=== PATIENT | male | born 1965 | race Caucasian/White ===

== ENCOUNTER 2016-08-25 18:17 | Inpatient (IN) | payer OTHER ==
[~2016-08-25] VITALS: Ht 188 cm; Wt 98.0 kg
[2016-08-25] MEDS ORDERED: FISH OIL PO (18:28)
[2016-08-25] MEDS ORDERED: METOCLOPRAMIDE HCL 10 MG/2 ML VIAL IV ONE (19:00)
[2016-08-25] MEDS ORDERED: KETOROLAC TROMETHAMINE 15 MG INJ IV ONE (19:00)
[2016-08-25 19:05] LABS: *BILIRUBIN,URIN NEGATIVE (NEGATIVE); *BLOOD, URINE Trace-intact (NEGATIVE); *CLARITY,URINE CLEAR (CLEAR); *COLOR,URINE YELLOW (YELLOW); *KETONES,URINE 2+ (NEGATIVE); *PROTEIN,URINE 2+ (NEGATIVE); LEUKOCYTE ESTERASE ,URINE NEGATIVE (NEGATIVE); NITRITE, URINE NEGATIVE (NEGATIVE); PH,URINE 8.5 (5.0-8.0); UGLUCOSE NEGATIVE (NEGATIVE)
[2016-08-25] MEDS ORDERED: METOCLOPRAMIDE HCL 10 MG/2 ML VIAL ONE (19:11)
[2016-08-25] MEDS ORDERED: KETOROLAC TROMETHAMINE 15 MG INJ ONE (19:11)
[2016-08-25 19:14] LABS: MUCUS,URINE FEW /LPF (0-FEW); WBC,URINE 0-3 /HPF (0-3)
[2016-08-25 19:16] LABS: BASOPHILS # (AUTO) 0.2 K/uL (0.0-8.0); BASOPHILS % (AUTO) 1.3 % (0.0-2.0); EOSINOPHILS % (AUTO) 0.1 % (0.0-7.0); HEMATOCRIT 52.8 % (40-50); HEMOGLOBIN 17.6 G/DL (14.0-18.0); LYMPHOCYTES # (AUTO) 1.4 K/UL (0.8-4.8); LYMPHOCYTES % (AUTO) 8.2 % (20.5-51.5); MEAN CORPUSCULAR HEMOGLOBIN 30.8 UUG (27.0-31.0); MEAN CORPUSCULAR HGB CONC 33 g/dL (32.0-37.0); MEAN CORPUSCULAR VOLUME 92.8 FL (82.0-92.0); MONOCYTES # (AUTO) 1.2 K/UL (0.1-1.30); MONOCYTES % (AUTO) 7.1 % (0.0-11.0); NEUTROPHILS # (AUTO) 14.3 K/UL (1.8-8.9); NEUTROPHILS % (AUTO) 83.3 % (38.5-71.5); PLATELET COUNT (AUTO) 148 K/UL (150-450); WHITE BLOOD COUNT (AUTO) 17.1 K/UL (4.0-11.2)
[2016-08-25 19:22] LABS: CREATININE 0.8 mg/dL (0.6-1.3); POTASSIUM 3.9 mmol/L (3.5-5.1)
[2016-08-25 19:29] LABS: BILIRUBIN,DIRECT 0.3 mg/dL (0.0-0.2); BILIRUBIN,TOTAL 2.8 mg/dL (0.2-1.0); TOTAL PROTEIN, SERUM 7.9 g/dL (6.4-8.2)
[2016-08-25] MEDS ORDERED: ONDANSETRON IV *ER 4 MG/2 ML VIAL IV ONE (19:30)
[2016-08-25] MEDS ORDERED: MORPHINE SULFATE 4 MG/1 ML DISP.SYRIN IV ONE (19:30)
--- NOTE | 2016-08-25 19:30 | NUR ---
Received report from ABDIRASHID Arevalo. Assumed care of pt at this time. Pt resting in position of comfort for self. Pt conts to c/o pain, requested pain medication. Fluid bolus infusing freely to gravity. Pt felt hot to touch, checked temp and pt afebrile at 98.8 MD notified of pts pain. Awaiting further orders.
[2016-08-25 19:37] LABS: BAND % (MANUAL) 9 % (0-10); LYMPHOCYTES % (MANUAL) 8 % (20-40); MONOCYTES % (MANUAL) 9 % (2-10); NEUTROPHILS % (MANUAL) 74 % (42-75)
[2016-08-25] MEDS ORDERED: IV NORMAL SALINE 1000 ML BAG IV ONE ×2 (19:45)
[2016-08-25] MEDS ORDERED: MORPHINE SULFATE 4 MG/1 ML DISP.SYRIN ONE (19:48)
[2016-08-25] MEDS ORDERED: ONDANSETRON 4 MG/2 ML VIAL ONE (19:48)
--- NOTE | 2016-08-25 19:50 | NUR ---
First fluid bolus completed. Second liter fluid bolus started, infusing freely to gravity. Pt medicated for pain, will monitor for effects of medication.
--- NOTE | 2016-08-25 19:55 | NUR ---
Pt to CT via abby
--- NOTE | 2016-08-25 20:30 | NUR ---
Pt returned from CT via gurney. Pt resting in position of comfort for self. Fluid bolus cont infusing freely to gravity. Pt sts pain improved from previous medication. No complaints at this time
--- NOTE | 2016-08-25 23:34 | NUR ---
Second page for epic instructional technologist. Awaiting return call
--- NOTE | 2016-08-26 00:04 | NUR ---
Dr. Giron speaking with Dr. Winn. Admission pending. Pt sts pain is increasing. MD notified, awaiting further orders.
[2016-08-26] MEDS ORDERED: MORPHINE SULFATE 4 MG/1 ML DISP.SYRIN IV ONE (00:15)
[2016-08-26] MEDS ORDERED: ONDANSETRON IV *ER 4 MG/2 ML VIAL IV ONE (00:15)
[2016-08-26] MEDS ORDERED: LEVOFLOXACIN 750 MG/D5W 150 ML PIGGYBACK IV ONE (00:30)
[2016-08-26] MEDS ORDERED: METRONIDAZOLE 500 MG/NS 100 ML PIGGYBACK IV ONE (00:30)
[2016-08-26] MEDS ORDERED: MORPHINE SULFATE 4 MG/1 ML DISP.SYRIN ONE (00:39)
[2016-08-26] MEDS ORDERED: ONDANSETRON 4 MG/2 ML VIAL ONE (00:39)
[2016-08-26] MEDS ORDERED: METRONIDAZOLE 500 MG/NS 100ML 100 ML IV ONE (00:39)
--- NOTE | 2016-08-26 00:40 | NUR ---
Pt medicated for pain, will monitor for effects of medication. ABT infusion started, will monitor for any adverse reactions. Pt resting in position of comfort for self
[2016-08-26] MEDS ORDERED: ACETAMINOPHEN 325 MG TABLET PO PRN (01:00)
[2016-08-26] MEDS ORDERED: LEVOFLOXACIN 500 MG/D5W 500 MG in PREMIXED 1 EACH IV SCH (01:00)
[2016-08-26] MEDS ORDERED: ONDANSETRON 4 MG/2 ML VIAL IV PRN (01:00)
[2016-08-26] MEDS ORDERED: HYDROCODONE/APAP 5-325MG TABLET PO PRN (01:00)
[2016-08-26] MEDS ORDERED: Z GUARD REMEDY PASTE 57 GM TUBE TOP PRN (01:00)
[2016-08-26] MEDS ORDERED: MAGNESIUM HYDROXIDE 30 ML LIQUID UDC PO PRN (01:00)
[2016-08-26 01:20] VITALS: BP 151/99
--- NOTE | 2016-08-26 01:25 | NUR ---
RECEIVED PATIENT FROM ER VIA GURNEY. PATIENT IS A/O X 4. DENIES PAIN UPON ARRIVAL. BP SLIGHTLY ELEVATED. ALL OTHER VSS. HEPLOCK INTACT AND PATENT, NOTED TO RIGHT FA #20 GAUGE. PATIENT PREVIOUSLY GIVEN LEVAQUIN IV IN ER PRIOR TO ADMISSION TO FLOOR. ORIENTED PATIENT TO ROOM AND CALL LIGHT. CALL LIGHT IN REACH. ALL NEEDS ATTENDED. WILL CONTINUE TO MONITOR.
[2016-08-26] MEDS: ZOLPIDEM 5 MG TABLET PO PRN ×2 (01:53→21:30)
[2016-08-26] MEDS ORDERED: ZOLPIDEM 5 MG TABLET ONE (01:53)
--- NOTE | 2016-08-26 01:55 | NUR ---
PATIENT REQUESTING SLEEPING PILL. PATIENT GIVEN AMBIEN 5MG PO PRN FOR SLEEP. ALL NEEDS ATTENDED.
[2016-08-26 04:52] VITALS: BP 138/91
--- NOTE | 2016-08-26 05:58 | NUR ---
PATIENT ASLEEP IN BED. EASILY AROUSABLE. VSS. NO C/O PAIN OR DISCOMFORT AT THIS TIME. NO RESP. DISTRESS NOTED. CALL LIGHT IN REACH. ALL NEEDS ATTENDED. WILL CONTINUE TO MONITOR.
--- NOTE | 2016-08-26 07:30 | NUR ---
RECEIVED REPORT FROM MATTRESS FINISHER NURSE, PATIENT IN BED, BED IN LOW POSITION, SIDE RAILS UP X2.
[2016-08-26] MEDS: PANTOPRAZOLE SODIUM 40 MG TABLET.DR PO SCH (08:40)
[2016-08-26] MEDS: MORPHINE SULFATE 2 MG/1 ML DISP.SYRIN IV PRN ×3 (08:41→20:08)
[2016-08-26] MEDS: METRONIDAZOLE 500 MG/NS 100ML 500 MG in PREMIXED 1 EACH IV SCH ×3 (08:51→23:51)
[2016-08-26 11:21] VITALS: BP 127/86
[2016-08-26 15:30] LABS: BASOPHILS % (AUTO) 0.3 % (0.0-2.0); EOSINOPHILS # (AUTO) 0.2 K/uL (0.0-0.7); EOSINOPHILS % (AUTO) 1.3 % (0.0-7.0); HEMATOCRIT 48.5 % (40-50); HEMOGLOBIN 15.8 G/DL (14.0-18.0); LYMPHOCYTES % (AUTO) 15.2 % (20.5-51.5); MEAN CORPUSCULAR HGB CONC 33 g/dL (32.0-37.0); MEAN CORPUSCULAR VOLUME 92.3 FL (82.0-92.0); MONOCYTES # (AUTO) 1.1 K/UL (0.1-1.30); NEUTROPHILS # (AUTO) 10.1 K/UL (1.8-8.9); NEUTROPHILS % (AUTO) 75.2 % (38.5-71.5); PLATELET COUNT (AUTO) 147 K/UL (150-450); RED BLOOD CELL COUNT(AUTO) 5.25 MIL/UL (4.7-6.1); WHITE BLOOD COUNT (AUTO) 13.4 K/UL (4.0-11.2)
[2016-08-26 15:32] LABS: CREATININE 0.9 mg/dL (0.6-1.3); POTASSIUM 4.2 mmol/L (3.5-5.1)
[2016-08-26 15:52] VITALS: BP 130/96
--- NOTE | 2016-08-26 18:09 | NUR ---
PATIENTS PAIN HAS BEEN CONTROLLED TODAY, COMFORT MEASURES TAKEN, AND PATIENT IS COOPERATIVE. VITALS WNL, LABS DRAWN AT 250PM
--- NOTE | 2016-08-26 19:20 | NUR ---
Bedside reporting with ABDIRASHID Alvarez
--- NOTE | 2016-08-26 19:30 | NUR ---
Awake, watching TV on initial rounds. Denies any pain/discomforts at this time. Safety measure and fall precaution maintained. Continue care as planned.
[2016-08-26 20:00] VITALS: BP 133/92
--- NOTE | 2016-08-26 20:08 | NUR ---
Medicated for lower abdominal pain in scale of 7/10 as ordered and needed. Will monitor. Jello and apple juice given per request.
--- NOTE | 2016-08-26 21:00 | NUR ---
Pain meds given effective.
[2016-08-27] MEDS: LEVOFLOXACIN 500 MG/D5W 500 MG in PREMIXED 1 EACH IV SCH (00:25)
[2016-08-27] MEDS: PANTOPRAZOLE SODIUM 40 MG TABLET.DR PO SCH (06:03)
--- NOTE | 2016-08-27 06:06 | NUR ---
Slept well. No further complaint of pain presented . All needs attended and met. No significant event reported all night. safety measures and fall precaution maintained. Continue care as planned.
[2016-08-27 06:40] VITALS: BP 125/86
[2016-08-27 07:22] LABS: CREATININE 0.8 mg/dL (0.6-1.3); MAGNESIUM 2.2 mg/dL (1.8-2.4); PHOSPHOROUS 2.8 mg/dL (2.5-4.9); POTASSIUM 4.1 mmol/L (3.5-5.1)
[2016-08-27] MEDS: MORPHINE SULFATE 2 MG/1 ML DISP.SYRIN IV PRN ×3 (07:31→19:28)
[2016-08-27] MEDS: METRONIDAZOLE 500 MG/NS 100ML 500 MG in PREMIXED 1 EACH IV SCH ×3 (07:32→23:27)
[2016-08-27 08:39] LABS: BASOPHILS % (AUTO) 0.2 % (0.0-2.0); EOSINOPHILS # (AUTO) 0.3 K/uL (0.0-0.7); EOSINOPHILS % (AUTO) 3.5 % (0.0-7.0); HEMATOCRIT 50.1 % (40-50); HEMOGLOBIN 16.4 G/DL (14.0-18.0); LYMPHOCYTES # (AUTO) 1.8 K/UL (0.8-4.8); LYMPHOCYTES % (AUTO) 19.2 % (20.5-51.5); MEAN CORPUSCULAR HEMOGLOBIN 30.6 UUG (27.0-31.0); MEAN CORPUSCULAR HGB CONC 33 g/dL (32.0-37.0); MEAN CORPUSCULAR VOLUME 93.5 FL (82.0-92.0); MONOCYTES # (AUTO) 0.8 K/UL (0.1-1.30); NEUTROPHILS # (AUTO) 6.5 K/UL (1.8-8.9); NEUTROPHILS % (AUTO) 68.1 % (38.5-71.5); PLATELET COUNT (AUTO) 140 K/UL (150-450); RED BLOOD CELL COUNT(AUTO) 5.36 MIL/UL (4.7-6.1)
[2016-08-27 08:41] LABS: WHITE BLOOD COUNT (AUTO) 9.4 K/UL (4.0-11.2)
[2016-08-27] MEDS ORDERED: LEVO500T2 PO (10:26)
[2016-08-27] MEDS ORDERED: METR500T PO (10:26)
[2016-08-27] MEDS ORDERED: BISACODYL 10 MG SUPP.RECT RC PRN (10:30)
[2016-08-27 12:10] VITALS: BP 150/92
[2016-08-27 12:13] VITALS: BP 97/69
[2016-08-27 16:21] VITALS: BP 145/90
[2016-08-27 16:24] VITALS: BP 145/90
[2016-08-27 20:00] VITALS: BP 121/78
--- NOTE | 2016-08-27 20:00 | NUR ---
RECEIVED PATIENT ASLEEP IN BED. EASILY AROUSABLE. DENIES PAIN. PATIENT WAS PREVIOUSLY MEDICATED PER RN DAYSHIFT NURSE. NO RESP. DISTRESS NOTED. VSS. CALL LIGHT IN REACH. ALL NEEDS ATTENDED. WILL CONTINUE TO MONITOR.
[2016-08-27] MEDS: ZOLPIDEM 5 MG TABLET PO PRN (22:19)
[2016-08-28] MEDS: LEVOFLOXACIN 500 MG/D5W 500 MG in PREMIXED 1 EACH IV SCH (00:11)
[2016-08-28] MEDS: PANTOPRAZOLE SODIUM 40 MG TABLET.DR PO SCH (06:13)
--- NOTE | 2016-08-28 06:31 | NUR ---
PATIENT ASLEEP IN BED. SLEPT WELL. CALL LIGHT IN REACH.
[2016-08-28 06:54] VITALS: BP 133/78
--- NOTE | 2016-08-28 07:25 | NUR ---
[facility] patient in bed, sleeping side rails up x2, bed in low position
[2016-08-28] MEDS: METRONIDAZOLE 500 MG/NS 100ML 500 MG in PREMIXED 1 EACH IV SCH (08:09)
[2016-08-28] MEDS: MORPHINE SULFATE 2 MG/1 ML DISP.SYRIN IV PRN (08:43)
[2016-08-28 11:17] LABS: BASOPHILS % (AUTO) 0.5 % (0.0-2.0); EOSINOPHILS # (AUTO) 0.2 K/uL (0.0-0.7); EOSINOPHILS % (AUTO) 2.6 % (0.0-7.0); HEMATOCRIT 52.2 % (40-50); HEMOGLOBIN 17.3 G/DL (14.0-18.0); LYMPHOCYTES # (AUTO) 1.6 K/UL (0.8-4.8); LYMPHOCYTES % (AUTO) 21.3 % (20.5-51.5); MEAN CORPUSCULAR HEMOGLOBIN 30.6 UUG (27.0-31.0); MEAN CORPUSCULAR HGB CONC 33 g/dL (32.0-37.0); MEAN CORPUSCULAR VOLUME 92.4 FL (82.0-92.0); MONOCYTES # (AUTO) 0.5 K/UL (0.1-1.30); MONOCYTES % (AUTO) 7.1 % (0.0-11.0); NEUTROPHILS # (AUTO) 5.1 K/UL (1.8-8.9); NEUTROPHILS % (AUTO) 68.5 % (38.5-71.5); PLATELET COUNT (AUTO) 193 K/UL (150-450); RED BLOOD CELL COUNT(AUTO) 5.65 MIL/UL (4.7-6.1); WHITE BLOOD COUNT (AUTO) 7.4 K/UL (4.0-11.2)
[2016-08-28 11:29] LABS: BILIRUBIN,TOTAL 0.9 mg/dL (0.2-1.0); PHOSPHOROUS 3.2 mg/dL (2.5-4.9); POTASSIUM 4.7 mmol/L (3.5-5.1); TOTAL PROTEIN, SERUM 8.1 g/dL (6.4-8.2)
--- NOTE | 2016-08-28 11:30 | NUR ---
DIET ADVANCED TO SEE IF PATIENT WILL TOLERATE REGULAR DIET.
[2016-08-28 11:36] LABS: THYROID STIMULATING HORMONE 2.618 mIU/mL (0.358-3.740)
[2016-08-28 12:04] VITALS: BP 140/99
[2016-08-28] MEDS ORDERED: HYDR-548 PO (13:53)
[2016-08-28] MEDS ORDERED: LEVO500T2 PO (13:53)
[2016-08-28] MEDS ORDERED: METR500T4 PO (13:53)
[2016-08-28] MEDS ORDERED: PANT40TA2 PO (13:53)
[2016-08-28] MEDS ORDERED: LACT1CAP57 PO (14:05)
[2016-08-28 15:19] VITALS: BP 142/96
--- NOTE | 2016-08-28 15:40 | NUR ---
PATIENT DISCHARGED AFTER CONSULT WITH PHARMACY FOR NEW MEDICATION, PRESCRIPTIONS GIVEN TO PATIENT. PATIENT IS STABLE, NO EVIDENCE OF SOB, PAIN OR DISTRESS NOTED.
== END 2016-08-28 17:20 | disposition home or self-care (01) | DRG 720 ==
LOC: ER 18:21 → MED 08-26 00:49
PROVIDERS: ADMIT Internal Medicine; ATTEND Nurse Practitioner Acute Care
DX: A41.9 Sepsis, unspecified organism (principal); D69.6 Thrombocytopenia, unspecified; K76.0 Fatty (change of) liver, not elsewhere classified; K57.32 Diverticulitis of large intestine without perforation or abscess without bleeding; K04.7 Periapical abscess without sinus; E78.5 Hyperlipidemia, unspecified; T40.605A Adverse effect of unspecified narcotics, initial encounter; Y92.009 Unspecified place in unspecified non-institutional (private) residence as the place of occurrence of the external cause; K59.03 Drug induced constipation; K57.30 Diverticulosis of large intestine without perforation or abscess without bleeding; D72.829 Elevated white blood cell count, unspecified; R14.0 Abdominal distension (gaseous); R73.9 Hyperglycemia, unspecified; K59.00 Constipation, unspecified; E80.6 Other disorders of bilirubin metabolism; R74.0 Nonspecific elevation of levels of transaminase and lactic acid dehydrogenase [LDH]
CPT/HCPCS: 36415; 70030-TC; 71010; 83690; 83735; 84100; 84443; 85025; 93005; A4663; J1885; J1956; J2270; J2405; J2765; J3490; J7030; J7040

== ENCOUNTER 2016-11-04 09:16 | Emergency (ER) | payer OTHER ==
[~2016-11-04] VITALS: Ht 188 cm; Wt 93.0 kg
[~2016-11-04 09:16] MED LIST: FISH OIL PO; HYDR-548 PO; LACT1CAP57 PO; LEVO500T2 PO; METR500T4 PO; PANT40TA2 PO
--- NOTE | 2016-11-04 09:27 | NUR ---
Dr López at the bedside for eval and exam.
--- NOTE | 2016-11-04 09:44 | NUR ---
Pt signed consent for IV contrast, placed in the chart.
[2016-11-04 09:51] LABS: BASOPHILS # (AUTO) 0.1 K/uL (0.0-8.0); BASOPHILS % (AUTO) 0.9 % (0.0-2.0); EOSINOPHILS # (AUTO) 0.2 K/uL (0.0-0.7); EOSINOPHILS % (AUTO) 2.2 % (0.0-7.0); HEMATOCRIT 53.7 % (40-50); HEMOGLOBIN 18.1 G/DL (14.0-18.0); LYMPHOCYTES # (AUTO) 2.5 K/UL (0.8-4.8); LYMPHOCYTES % (AUTO) 24.7 % (20.5-51.5); MEAN CORPUSCULAR HEMOGLOBIN 30.6 UUG (27.0-31.0); MEAN CORPUSCULAR HGB CONC 34 g/dL (32.0-37.0); MEAN CORPUSCULAR VOLUME 90.8 FL (82.0-92.0); MONOCYTES # (AUTO) 0.8 K/UL (0.1-1.30); MONOCYTES % (AUTO) 7.9 % (0.0-11.0); NEUTROPHILS # (AUTO) 6.5 K/UL (1.8-8.9); NEUTROPHILS % (AUTO) 64.3 % (38.5-71.5); PLATELET COUNT (AUTO) 159 K/UL (150-450); RED BLOOD CELL COUNT(AUTO) 5.92 MIL/UL (4.7-6.1); WHITE BLOOD COUNT (AUTO) 10.1 K/UL (4.0-11.2)
[2016-11-04 09:55] LABS: CREATININE 0.9 mg/dL (0.6-1.3); POTASSIUM 4.4 mmol/L (3.5-5.1)
[2016-11-04 10:00] LABS: BILIRUBIN,DIRECT 0.2 mg/dL (0.0-0.2); BILIRUBIN,TOTAL 1.3 mg/dL (0.2-1.0); TOTAL PROTEIN, SERUM 8.3 g/dL (6.4-8.2)
[2016-11-04] MEDS ORDERED: ACETAMINOPHEN ES 500 MG TABLET PO ONE (10:00)
[2016-11-04] MEDS ORDERED: ACETAMINOPHEN ES 500 MG TABLET ONE (10:04)
[2016-11-04 10:16] LABS: BAND % (MANUAL) 3 % (0-10); EOSINOPHILS % (MANUAL) 2 % (0-8); LYMPHOCYTES % (MANUAL) 21 % (20-40); MONOCYTES % (MANUAL) 9 % (2-10); NEUTROPHILS % (MANUAL) 65 % (42-75)
--- NOTE | 2016-11-04 10:31 | NUR ---
Pt out of ER for ct.
[2016-11-04 10:39] LABS: *BILIRUBIN,URIN NEGATIVE (NEGATIVE); *BLOOD, URINE NEGATIVE (NEGATIVE); *CLARITY,URINE CLEAR (CLEAR); *COLOR,URINE YELLOW (YELLOW); *KETONES,URINE NEGATIVE (NEGATIVE); *PROTEIN,URINE 2+ (NEGATIVE); LEUKOCYTE ESTERASE ,URINE NEGATIVE (NEGATIVE); NITRITE, URINE NEGATIVE (NEGATIVE); UGLUCOSE NEGATIVE (NEGATIVE)
[2016-11-04] MEDS ORDERED: IOHEXOL 300MG/ML 100 ML INFUS..BTL ONE (10:39)
[2016-11-04] MEDS ORDERED: NORMAL SALINE FLUSH 10 ML DISP.SYRIN ONE (10:39)
[2016-11-04] MEDS ORDERED: IV NORMAL SALINE 250 ML IV ONE (10:39)
[2016-11-04 10:55] LABS: MUCUS,URINE FEW /LPF (0-FEW); RBC,URINE 0-3 /HPF (0-3); WBC,URINE 0-3 /HPF (0-3)
[2016-11-04] MEDS ORDERED: KETOROLAC TROMETHAMINE 30 MG INJ IVP ONE (11:30)
[2016-11-04] MEDS ORDERED: KETOROLAC TROMETHAMINE 30 MG INJ ONE (11:48)
--- NOTE | 2016-11-04 11:50 | NUR ---
IV removed. Catheter intact and site benign. Pressure and 4x4 gauze applied to site. No bleeding noted.
[2016-11-04 11:51] VITALS: BP 117/88
--- NOTE | 2016-11-04 11:51 | NUR ---
Patient discharged to home in stable conditon. Written and verbal after care instructions given. Patient verbalizes understanding of instructions.
== END 2016-11-04 11:53 | disposition home or self-care (01) ==
LOC: ER 09:16
DX: K57.92 Diverticulitis of intestine, part unspecified, without perforation or abscess without bleeding (principal); H60.92 Unspecified otitis externa, left ear; E78.5 Hyperlipidemia, unspecified; E88.89 Other specified metabolic disorders
CPT/HCPCS: 36415; 74177; 80048; 80076; 81001; 85025; 96374; 99285; A4663; J1885; J3490; J7050; Q9967

== ENCOUNTER 2017-05-07 18:44 | Emergency (ER) | payer OTHER ==
[~2017-05-07] VITALS: Ht 185.4 cm; Wt 95.3 kg
[2017-05-07] MEDS ORDERED: HYDROMORPHONE 1 MG/1 ML DISP.SYRIN IV ONE (19:45)
[2017-05-07] MEDS ORDERED: ONDANSETRON 4 MG/2 ML VIAL IV ONE (19:45)
[2017-05-07] MEDS ORDERED: IV NORMAL SALINE 1000 ML BAG IV ONE (19:45)
--- NOTE | 2017-05-07 19:49 | NUR ---
Patient is currently in CT.
[2017-05-07] MEDS ORDERED: ONDANSETRON 4 MG/2 ML VIAL ONE (20:04)
[2017-05-07] MEDS ORDERED: HYDROMORPHONE 2 MG/1 ML DISP.SYRIN ONE (20:04)
[2017-05-07 20:22] LABS: BASOPHILS % (AUTO) 0.3 % (0.0-2.0); EOSINOPHILS # (AUTO) 0.1 K/uL (0.0-0.7); HEMATOCRIT 51.6 % (36.7-47.1); HEMOGLOBIN 17.2 g/dL (12.5-16.3); LYMPHOCYTES # (AUTO) 2.3 K/uL (20.0-40.0); LYMPHOCYTES % (AUTO) 18.1 % (20.5-51.5); MEAN CORPUSCULAR HEMOGLOBIN 30.8 uug (23.8-33.4); MEAN CORPUSCULAR HGB CONC 33 g/dL (32.5-36.3); MEAN CORPUSCULAR VOLUME 92.2 fL (73.0-96.2); MONOCYTES # (AUTO) 1.2 K/uL (2.0-10.0); NEUTROPHILS # (AUTO) 9.2 K/uL (1.8-8.9); NEUTROPHILS % (AUTO) 71.6 % (38.5-71.5); PLATELET COUNT (AUTO) 142 K/uL (152-348); WHITE BLOOD COUNT (AUTO) 12.8 K/uL (3.6-10.2)
--- NOTE | 2017-05-07 20:30 | NUR ---
DARIO MD at bedside for patient evaluation/update.
[2017-05-07 20:33] LABS: CREATININE 0.9 mg/dL (0.6-1.3); POTASSIUM 4.6 mmol/L (3.5-5.1)
[2017-05-07 20:41] LABS: BILIRUBIN,DIRECT 0.2 mg/dL (0.0-0.2); BILIRUBIN,TOTAL 1.3 mg/dL (0.2-1.0)
[2017-05-07 21:20] VITALS: BP 137/87
--- NOTE | 2017-05-07 21:21 | NUR ---
Patient discharged to home in stable conditon. Written and verbal after care instructions given. Patient verbalizes understanding of instructions. Ambulated from ER with stable gait. All belongings with patient. Peripheral IV removed prior to d/c. Patient driven home by .
== END 2017-05-07 21:21 | disposition home or self-care (01) ==
LOC: ER 18:50
DX: K57.92 Diverticulitis of intestine, part unspecified, without perforation or abscess without bleeding (principal); E78.00 Pure hypercholesterolemia, unspecified; Z79.2 Long term (current) use of antibiotics; Z79.899 Other long term (current) drug therapy
CPT/HCPCS: 36415; 70030-TC; 83690; 85025; 85730; 93005; A4663; J1170; J2405; J7030

== ENCOUNTER 2017-08-31 18:39 | Emergency (ER) | payer OTHER ==
[~2017-08-31] VITALS: Ht 188 cm; Wt 95.3 kg
--- NOTE | 2017-08-31 19:25 | NUR ---
Dr. Shukla at bedside for MSE.
[2017-08-31] MEDS ORDERED: HYDROMORPHONE 1 MG/1 ML DISP.SYRIN IV ONE ×2 (19:30→20:45)
[2017-08-31] MEDS ORDERED: IV NORMAL SALINE 1000 ML BAG IV ONE (19:30)
[2017-08-31] MEDS ORDERED: ONDANSETRON 4 MG/2 ML VIAL IV ONE (19:30)
--- NOTE | 2017-08-31 19:52 | NUR ---
Pt out of ER for CT.
[2017-08-31 19:53] LABS: *BILIRUBIN,URIN NEGATIVE (NEGATIVE); *BLOOD, URINE Trace-lysed (NEGATIVE); *CLARITY,URINE SLIGHTLY CLOUDY (CLEAR); *COLOR,URINE YELLOW (YELLOW); *KETONES,URINE NEGATIVE (NEGATIVE); *PROTEIN,URINE NEGATIVE (NEGATIVE); *UROBILINOGEN,URINE 0.2 E.U./dl (NORMAL); LEUKOCYTE ESTERASE ,URINE NEGATIVE (NEGATIVE); NITRITE, URINE NEGATIVE (NEGATIVE); PH,URINE 5.5 (5.0-8.0); UGLUCOSE NEGATIVE (NEGATIVE)
[2017-08-31] MEDS ORDERED: HYDROMORPHONE 2 MG/1 ML DISP.SYRIN ONE ×2 (19:53→20:50)
[2017-08-31] MEDS ORDERED: ONDANSETRON 4 MG/2 ML VIAL ONE ×3 (19:53→20:53)
[2017-08-31 19:59] LABS: BACTERIA,URINE NONE SEEN /HPF (NONE SEEN); RBC,URINE 0-3 /HPF (0-3); SQUAMOUS EPITHELIAL CELL,UR NONE SEEN /HPF (NONE SEEN); WBC,URINE 0-3 /HPF (0-3)
[2017-08-31 20:00] LABS: BASOPHILS % (AUTO) 0.5 % (0.0-2.0); EOSINOPHILS # (AUTO) 0.2 K/uL (0.0-0.7); EOSINOPHILS % (AUTO) 1.9 % (0.0-7.0); HEMATOCRIT 49.2 % (36.7-47.1); HEMOGLOBIN 16.9 g/dL (12.5-16.3); LYMPHOCYTES # (AUTO) 2.4 K/uL (20.0-40.0); LYMPHOCYTES % (AUTO) 23.2 % (20.5-51.5); MEAN CORPUSCULAR HEMOGLOBIN 31.6 uug (23.8-33.4); MEAN CORPUSCULAR HGB CONC 34 g/dL (32.5-36.3); MONOCYTES % (AUTO) 9.3 % (0.0-11.0); NEUTROPHILS # (AUTO) 6.8 K/uL (1.8-8.9); NEUTROPHILS % (AUTO) 65.1 % (38.5-71.5); PLATELET COUNT (AUTO) 131 K/uL (152-348); RED BLOOD CELL COUNT(AUTO) 5.34 MIL/uL (4.06-5.63); WHITE BLOOD COUNT (AUTO) 10.5 K/uL (3.6-10.2)
--- NOTE | 2017-08-31 20:01 | NUR ---
Patient back to ER from CT.
[2017-08-31 20:09] LABS: CREATININE 0.9 mg/dL (0.6-1.3); POTASSIUM 4.2 mmol/L (3.5-5.1)
[2017-08-31 20:16] LABS: BILIRUBIN,DIRECT 0.2 mg/dL (0.0-0.2); BILIRUBIN,TOTAL 1.2 mg/dL (0.2-1.0); TOTAL PROTEIN, SERUM 7.8 g/dL (6.4-8.2)
--- NOTE | 2017-08-31 20:26 | NUR ---
Pt states pain has decreased to 5/10, denies nausea.
[2017-08-31] MEDS ORDERED: ONDANSETRON IV *ER 4 MG/2 ML VIAL IV ONE (20:45)
--- NOTE | 2017-08-31 20:45 | NUR ---
Pt requesting more pain meds, notified.
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
--- NOTE | 2017-08-31 22:29 | NUR ---
Pt states he called his girlfriend to pick him up.
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
--- NOTE | 2017-08-31 22:46 | NUR ---
Patient discharged to home in stable conditon. Written and verbal after care instructions given. Patient verbalizes understanding of instructions. Patient ambulated out of ER with steady gait, no acute signs of distress, VSS, all belongings taken, IV site discontinued.
[2017-08-31 22:48] VITALS: BP 141/106
== END 2017-08-31 22:49 | disposition home or self-care (01) ==
LOC: ER 18:42
DX: K57.92 Diverticulitis of intestine, part unspecified, without perforation or abscess without bleeding (principal); E78.5 Hyperlipidemia, unspecified; Z79.2 Long term (current) use of antibiotics; Z79.891 Long term (current) use of opiate analgesic; Z79.899 Other long term (current) drug therapy
CPT/HCPCS: 36415; 71045; 74176; 80048; 80076; 81001; 83690; 84484; 85025; 85730; 93005; 96374; 96375; 96376; 99285; A4663; J1170 ×2; J2405 ×3; J7030; 70030-TC; 87086

== ENCOUNTER 2017-10-26 00:12 | Inpatient (IN) | payer OTHER ==
[~2017-10-26] VITALS: Ht 188 cm; Wt 98.6 kg
[2017-10-26] MEDS ORDERED: ONDANSETRON 4 MG/2 ML VIAL IV ONE (01:00)
[2017-10-26] MEDS ORDERED: IV NORMAL SALINE 1000 ML BAG IV ONE (01:00)
[2017-10-26] MEDS ORDERED: HYDROMORPHONE 1 MG/1 ML DISP.SYRIN IV ONE ×2 (01:00→03:30)
[2017-10-26] MEDS ORDERED: ONDANSETRON 4 MG/2 ML VIAL ONE (01:20)
[2017-10-26] MEDS ORDERED: HYDROMORPHONE 2 MG/1 ML DISP.SYRIN ONE ×2 (01:20→03:34)
[2017-10-26 01:29] LABS: BASOPHILS % (AUTO) 0.3 % (0.0-2.0); EOSINOPHILS # (AUTO) 0.1 K/uL (0.0-0.7); EOSINOPHILS % (AUTO) 1.1 % (0.0-7.0); HEMATOCRIT 48.8 % (36.7-47.1); HEMOGLOBIN 16.4 g/dL (12.5-16.3); LYMPHOCYTES # (AUTO) 1.8 K/uL (20.0-40.0); LYMPHOCYTES % (AUTO) 17.5 % (20.5-51.5); MEAN CORPUSCULAR HEMOGLOBIN 31.1 uug (23.8-33.4); MEAN CORPUSCULAR HGB CONC 34 g/dL (32.5-36.3); MEAN CORPUSCULAR VOLUME 92.3 fL (73.0-96.2); MONOCYTES # (AUTO) 1.2 K/uL (2.0-10.0); MONOCYTES % (AUTO) 11.5 % (0.0-11.0); NEUTROPHILS # (AUTO) 7.1 K/uL (1.8-8.9); NEUTROPHILS % (AUTO) 69.6 % (38.5-71.5); PLATELET COUNT (AUTO) 134 K/uL (152-348); RED BLOOD CELL COUNT(AUTO) 5.28 MIL/uL (4.06-5.63); WHITE BLOOD COUNT (AUTO) 10.2 K/uL (3.6-10.2)
[2017-10-26 01:30] LABS: *BILIRUBIN,URIN NEGATIVE (NEGATIVE); *BLOOD, URINE NEGATIVE (NEGATIVE); *CLARITY,URINE CLEAR (CLEAR); *KETONES,URINE NEGATIVE (NEGATIVE); *PROTEIN,URINE NEGATIVE (NEGATIVE); *UROBILINOGEN,URINE 0.2 E.U./dl (NORMAL); LEUKOCYTE ESTERASE ,URINE NEGATIVE (NEGATIVE); NITRITE, URINE NEGATIVE (NEGATIVE); UGLUCOSE NEGATIVE (NEGATIVE)
[2017-10-26 01:39] LABS: *COLOR,URINE STRAW (YELLOW); BACTERIA,URINE NONE SEEN /HPF (NONE SEEN); RBC,URINE NONE SEEN /HPF (0-3); SQUAMOUS EPITHELIAL CELL,UR NONE SEEN /HPF (NONE SEEN); WBC,URINE NONE SEEN /HPF (0-3)
[2017-10-26 01:40] LABS: CREATININE 0.9 mg/dL (0.6-1.3); POTASSIUM 3.8 mmol/L (3.5-5.1)
[2017-10-26 01:46] LABS: BILIRUBIN,DIRECT 0.3 mg/dL (0.0-0.2); BILIRUBIN,TOTAL 2.1 mg/dL (0.2-1.0); TOTAL PROTEIN, SERUM 7.4 g/dL (6.4-8.2)
[2017-10-26] MEDS ORDERED: ACETAMINOPHEN 325 MG TABLET PO PRN (05:30)
[2017-10-26] MEDS ORDERED: Z GUARD REMEDY PASTE 57 GM TUBE TOP PRN (05:30)
[2017-10-26] MEDS ORDERED: MAGNESIUM HYDROXIDE 30 ML LIQUID UDC PO PRN (05:30)
[2017-10-26] MEDS ORDERED: HYDROMORPHONE 1 MG/1 ML DISP.SYRIN IV PRN (05:30)
[2017-10-26] MEDS ORDERED: MORPHINE SULFATE 2 MG/1 ML DISP.SYRIN IV PRN (05:30)
[2017-10-26] MEDS ORDERED: PIPERACILLIN SODIUM/TAZOBACTAM 4.5 G in IV DEXTROSE 5% 50 ML IV ONE (06:00)
[2017-10-26 06:21] VITALS: BP 154/108
[2017-10-26] MEDS: IV NS 1000 ML 1,000 ML IV PRN ×2 (08:08→21:34)
[2017-10-26] MEDS: PANTOPRAZOLE SODIUM 40 MG VIAL IV SCH (08:08)
[2017-10-26] MEDS: PIPERACILLIN/TAZOBACTAM/D5W 3.375 G in PREMIXED 1 EACH IV SCH ×3 (08:21→21:30)
[2017-10-26 11:58] VITALS: BP 125/89
[2017-10-26 16:04] VITALS: BP 139/96
[2017-10-26 20:12] VITALS: BP 136/89
[2017-10-26] MEDS: HYDROMORPHONE 2 MG/1 ML DISP.SYRIN IV PRN (21:30)
[2017-10-27 04:46] VITALS: BP 133/80
[2017-10-27] MEDS: PIPERACILLIN/TAZOBACTAM/D5W 3.375 G in PREMIXED 1 EACH IV SCH ×3 (05:24→21:30)
[2017-10-27 06:17] LABS: BASOPHILS % (AUTO) 0.3 % (0.0-2.0); EOSINOPHILS # (AUTO) 0.1 K/uL (0.0-0.7); EOSINOPHILS % (AUTO) 1.7 % (0.0-7.0); HEMATOCRIT 47.1 % (36.7-47.1); LYMPHOCYTES # (AUTO) 1.8 K/uL (20.0-40.0); LYMPHOCYTES % (AUTO) 21.1 % (20.5-51.5); MEAN CORPUSCULAR HEMOGLOBIN 32.1 uug (23.8-33.4); MEAN CORPUSCULAR HGB CONC 34 g/dL (32.5-36.3); MEAN CORPUSCULAR VOLUME 94.5 fL (73.0-96.2); MONOCYTES # (AUTO) 0.9 K/uL (2.0-10.0); MONOCYTES % (AUTO) 10.2 % (0.0-11.0); NEUTROPHILS # (AUTO) 5.6 K/uL (1.8-8.9); NEUTROPHILS % (AUTO) 66.7 % (38.5-71.5); PLATELET COUNT (AUTO) 118 K/uL (152-348); RED BLOOD CELL COUNT(AUTO) 4.99 MIL/uL (4.06-5.63); WHITE BLOOD COUNT (AUTO) 8.4 K/uL (3.6-10.2)
[2017-10-27 06:23] LABS: CREATININE 0.8 mg/dL (0.6-1.3); MAGNESIUM 2.2 mg/dL (1.8-2.4); PHOSPHOROUS 3.1 mg/dL (2.5-4.9); POTASSIUM 3.9 mmol/L (3.5-5.1)
[2017-10-27] MEDS: PANTOPRAZOLE SODIUM 40 MG VIAL IV SCH (09:15)
[2017-10-27 14:54] LABS: BILIRUBIN,DIRECT 0.3 mg/dL (0.0-0.2); BILIRUBIN,TOTAL 2.2 mg/dL (0.2-1.0)
[2017-10-27 15:50] VITALS: BP 121/81
[2017-10-27] MEDS: MORPHINE SULFATE 4 MG/1 ML DISP.SYRIN IV PRN ×2 (16:15→21:32)
[2017-10-27] MEDS: IV NS 1000 ML 1,000 ML IV PRN (17:15)
[2017-10-27 21:23] VITALS: BP 130/91
[2017-10-28 04:15] VITALS: BP 127/85
[2017-10-28] MEDS: PIPERACILLIN/TAZOBACTAM/D5W 3.375 G in PREMIXED 1 EACH IV SCH ×2 (05:36→13:26)
[2017-10-28] MEDS: IV NS 1000 ML 1,000 ML IV PRN ×2 (06:42→17:50)
[2017-10-28] MEDS: MORPHINE SULFATE 4 MG/1 ML DISP.SYRIN IV PRN (06:45)
[2017-10-28] MEDS: PANTOPRAZOLE SODIUM 40 MG VIAL IV SCH (08:26)
[2017-10-28 11:34] VITALS: BP_SYST 145
[2017-10-28] MEDS: ONDANSETRON 4 MG/2 ML VIAL IV PRN (13:18)
[2017-10-28] MEDS: HYDROMORPHONE 2 MG/1 ML DISP.SYRIN IV PRN (13:25)
[2017-10-28 15:51] VITALS: BP 140/83
[2017-10-28 17:24] LABS: BASOPHILS % (AUTO) 0.5 % (0.0-2.0); EOSINOPHILS # (AUTO) 0.1 K/uL (0.0-0.7); HEMATOCRIT 49.4 % (36.7-47.1); HEMOGLOBIN 16.6 g/dL (12.5-16.3); LYMPHOCYTES # (AUTO) 1.1 K/uL (20.0-40.0); LYMPHOCYTES % (AUTO) 12.1 % (20.5-51.5); MEAN CORPUSCULAR HGB CONC 34 g/dL (32.5-36.3); MEAN CORPUSCULAR VOLUME 94.9 fL (73.0-96.2); MONOCYTES # (AUTO) 0.6 K/uL (2.0-10.0); MONOCYTES % (AUTO) 7.1 % (0.0-11.0); NEUTROPHILS % (AUTO) 79.3 % (38.5-71.5); PLATELET COUNT (AUTO) 131 K/uL (152-348); RED BLOOD CELL COUNT(AUTO) 5.21 MIL/uL (4.06-5.63); WHITE BLOOD COUNT (AUTO) 8.9 K/uL (3.6-10.2)
[2017-10-28 18:14] LABS: BILIRUBIN,DIRECT 0.2 mg/dL (0.0-0.2); BILIRUBIN,TOTAL 1.2 mg/dL (0.2-1.0); TOTAL PROTEIN, SERUM 7.7 g/dL (6.4-8.2)
[2017-10-28 19:56] VITALS: BP 148/91
[2017-10-28] MEDS: CIPROFLOXACIN IV 400 MG in PREMIXED 1 EACH IV SCH (20:24)
[2017-10-28] MEDS: METRONIDAZOLE 500 MG/NS 100ML 500 MG in PREMIXED 1 EACH IV SCH (21:34)
[2017-10-29 04:00] VITALS: BP 126/56
[2017-10-29] MEDS: METRONIDAZOLE 500 MG/NS 100ML 500 MG in PREMIXED 1 EACH IV SCH ×3 (05:12→21:49)
[2017-10-29 07:03] LABS: BILIRUBIN,TOTAL 1.5 mg/dL (0.2-1.0); CREATININE 0.8 mg/dL (0.6-1.3); PHOSPHOROUS 3.2 mg/dL (2.5-4.9); POTASSIUM 3.5 mmol/L (3.5-5.1); TOTAL PROTEIN, SERUM 7.1 g/dL (6.4-8.2)
[2017-10-29 07:06] LABS: BASOPHILS % (AUTO) 0.2 % (0.0-2.0); EOSINOPHILS # (AUTO) 0.2 K/uL (0.0-0.7); HEMATOCRIT 47.4 % (36.7-47.1); HEMOGLOBIN 15.8 g/dL (12.5-16.3); LYMPHOCYTES # (AUTO) 1.8 K/uL (20.0-40.0); LYMPHOCYTES % (AUTO) 22.8 % (20.5-51.5); MEAN CORPUSCULAR HEMOGLOBIN 31.8 uug (23.8-33.4); MEAN CORPUSCULAR HGB CONC 33 g/dL (32.5-36.3); MEAN CORPUSCULAR VOLUME 95.2 fL (73.0-96.2); MONOCYTES # (AUTO) 0.7 K/uL (2.0-10.0); MONOCYTES % (AUTO) 9.5 % (0.0-11.0); NEUTROPHILS # (AUTO) 5.1 K/uL (1.8-8.9); NEUTROPHILS % (AUTO) 65.5 % (38.5-71.5); PLATELET COUNT (AUTO) 148 K/uL (152-348); RED BLOOD CELL COUNT(AUTO) 4.98 MIL/uL (4.06-5.63); WHITE BLOOD COUNT (AUTO) 7.8 K/uL (3.6-10.2)
[2017-10-29] MEDS: PANTOPRAZOLE SODIUM 40 MG VIAL IV SCH (08:34)
[2017-10-29] MEDS: CIPROFLOXACIN IV 400 MG in PREMIXED 1 EACH IV SCH ×2 (09:11→21:49)
[2017-10-29] MEDS: IV NS 1000 ML 1,000 ML IV PRN (09:35)
[2017-10-29] MEDS: POTASSIUM CHLORIDE 20 MEQ in IV D5/ 0.9% NACL 1,000 ML IV PRN (11:18)
[2017-10-29] MEDS: MORPHINE SULFATE 4 MG/1 ML DISP.SYRIN IV PRN (11:23)
[2017-10-29 11:49] VITALS: BP 153/89
[2017-10-29] MEDS ORDERED: MAGNESIUM CITRATE 296 ML BOTTLE PO ONE (12:15)
[2017-10-29] MEDS ORDERED: ERYTHROMYCIN BASE 250 MG TABLET.DR PO SCH (12:15)
[2017-10-29] MEDS ORDERED: NEOMYCIN SULFATE 500 MG TABLET PO SCH ×3 (13:00→22:00)
[2017-10-29] MEDS: ONDANSETRON 4 MG/2 ML VIAL IV PRN (15:25)
[2017-10-29 15:58] VITALS: BP 137/90
[2017-10-29] MEDS ORDERED: NORMAL SALINE FLUSH 10 ML DISP.SYRIN ONE (18:29)
[2017-10-29] MEDS ORDERED: SWABABLE VALVE TRANSFER SET EA MC ONE (18:29)
[2017-10-29] MEDS ORDERED: IOHEXOL 300MG/ML 100 ML INFUS..BTL ONE (18:29)
[2017-10-29] MEDS ORDERED: IV NORMAL SALINE 250 ML IV ONE (18:29)
[2017-10-29 20:58] VITALS: BP 140/97
[2017-10-30] MEDS: POTASSIUM CHLORIDE 20 MEQ in IV D5/ 0.9% NACL 1,000 ML IV PRN (03:22)
[2017-10-30 04:00] VITALS: BP 141/90
[2017-10-30] MEDS: METRONIDAZOLE 500 MG/NS 100ML 500 MG in PREMIXED 1 EACH IV SCH (05:19)
[2017-10-30 06:23] LABS: BASOPHILS % (AUTO) 0.5 % (0.0-2.0); EOSINOPHILS # (AUTO) 0.1 K/uL (0.0-0.7); EOSINOPHILS % (AUTO) 2.3 % (0.0-7.0); HEMATOCRIT 47.9 % (36.7-47.1); HEMOGLOBIN 16.4 g/dL (12.5-16.3); LYMPHOCYTES # (AUTO) 1.8 K/uL (20.0-40.0); LYMPHOCYTES % (AUTO) 28.5 % (20.5-51.5); MEAN CORPUSCULAR HEMOGLOBIN 32.1 uug (23.8-33.4); MEAN CORPUSCULAR HGB CONC 34 g/dL (32.5-36.3); MEAN CORPUSCULAR VOLUME 93.7 fL (73.0-96.2); MONOCYTES # (AUTO) 0.6 K/uL (2.0-10.0); MONOCYTES % (AUTO) 10.2 % (0.0-11.0); NEUTROPHILS # (AUTO) 3.7 K/uL (1.8-8.9); NEUTROPHILS % (AUTO) 58.5 % (38.5-71.5); PLATELET COUNT (AUTO) 155 K/uL (152-348); RED BLOOD CELL COUNT(AUTO) 5.11 MIL/uL (4.06-5.63); WHITE BLOOD COUNT (AUTO) 6.3 K/uL (3.6-10.2)
[2017-10-30 06:31] LABS: BILIRUBIN,TOTAL 1.6 mg/dL (0.2-1.0); CREATININE 0.8 mg/dL (0.6-1.3); PHOSPHOROUS 3.7 mg/dL (2.5-4.9); POTASSIUM 4.1 mmol/L (3.5-5.1); TOTAL PROTEIN, SERUM 7.4 g/dL (6.4-8.2)
[2017-10-30] MEDS: CIPROFLOXACIN IV 400 MG in PREMIXED 1 EACH IV SCH (08:17)
[2017-10-30] MEDS: PANTOPRAZOLE SODIUM 40 MG VIAL IV SCH (08:17)
[2017-10-30 11:07] VITALS: BP 150/96
[2017-10-30] MEDS ORDERED: HYDROCODONE/APAP 5-325MG TABLET PO PRN (14:30)
[2017-10-30] MEDS ORDERED: MAG HYDROX/AL HYDROX/SIMETH 30 ML LIQUID UDC PO PRN (14:30)
[2017-10-30] MEDS ORDERED: HYDR-3326 PO (14:36)
[2017-10-30] MEDS ORDERED: LACT1CAP59 PO (14:36)
[2017-10-30] MEDS ORDERED: METR500T4 PO (14:36)
[2017-10-30] MEDS ORDERED: CIPR250T4 PO (14:36)
[2017-10-30] MEDS ORDERED: MAG30ORA PO (14:36)
[2017-10-30 15:33] VITALS: BP 145/100
[2017-10-30] MEDS ORDERED: CIPROFLOXACIN HCL 250 MG TABLET PO SCH (21:00)
[2017-10-30] MEDS ORDERED: METRONIDAZOLE 500 MG TABLET PO SCH (22:00)
== END 2017-10-30 15:30 | disposition home or self-care (01) | DRG 244 ==
LOC: ER 00:16 → MED 05:20
PROVIDERS: ADMIT Hospitalist
DX: K57.32 Diverticulitis of large intestine without perforation or abscess without bleeding (principal); D69.6 Thrombocytopenia, unspecified; K76.0 Fatty (change of) liver, not elsewhere classified; E78.5 Hyperlipidemia, unspecified; E83.51 Hypocalcemia; R73.9 Hyperglycemia, unspecified; Z82.3 Family history of stroke; M47.898 Other spondylosis, sacral and sacrococcygeal region
CPT/HCPCS: 36415; 70030-TC; 71045; 76700; 83550; 83605; 83690; 83735; 84100; 85025; 85730; 86850; 86900; 86901; 87040; 93005; A4663; C9113; J0744; J1170; J2270; J2405; J2543; J3480; J3490; J7030; J7042; J7050; J7060; J8499; Q9967

== ENCOUNTER 2018-06-23 10:55 | Emergency (ER) | payer OTHER ==
[~2018-06-23] VITALS: Ht 188 cm; Wt 99.8 kg
[~2018-06-23 10:55] MED LIST changes: +CIPR250T4 PO; -FISH OIL PO; +HYDR-3326 PO; -HYDR-548 PO; -LACT1CAP57 PO; +LACT1CAP59 PO; -LEVO500T2 PO; +MAG30ORA PO; +METR-147 PO; -METR500T4 PO; -PANT40TA2 PO
[2018-06-23 12:01] LABS: BASOPHILS % (AUTO) 0.5 % (0.0-2.0); EOSINOPHILS # (AUTO) 0.1 K/uL (0.0-0.7); EOSINOPHILS % (AUTO) 2.5 % (0.0-7.0); HEMATOCRIT 47.4 % (36.7-47.1); LYMPHOCYTES # (AUTO) 2.1 K/uL (20.0-40.0); MEAN CORPUSCULAR HEMOGLOBIN 30.7 uug (23.8-33.4); MEAN CORPUSCULAR HGB CONC 34 g/dL (32.5-36.3); MEAN CORPUSCULAR VOLUME 90.8 fL (73.0-96.2); MONOCYTES # (AUTO) 0.5 K/uL (2.0-10.0); MONOCYTES % (AUTO) 8.6 % (0.0-11.0); NEUTROPHILS # (AUTO) 2.9 K/uL (1.8-8.9); NEUTROPHILS % (AUTO) 51.4 % (38.5-71.5); PLATELET COUNT (AUTO) 138 K/uL (152-348); RED BLOOD CELL COUNT(AUTO) 5.22 MIL/uL (4.06-5.63); WHITE BLOOD COUNT (AUTO) 5.6 K/uL (3.6-10.2)
[2018-06-23] MEDS ORDERED: ACETAMINOPHEN ES 500 MG TABLET ONE (12:05)
[2018-06-23 12:08] LABS: CREATININE 0.8 mg/dL (0.6-1.3); POTASSIUM 4.2 mmol/L (3.5-5.1)
[2018-06-23 12:14] LABS: BILIRUBIN,DIRECT 0.2 mg/dL (0.0-0.2); BILIRUBIN,TOTAL 0.9 mg/dL (0.2-1.0); TOTAL PROTEIN, SERUM 7.8 g/dL (6.4-8.2)
[2018-06-23] MEDS ORDERED: ACETAMINOPHEN ES 500 MG TABLET PO ONE (12:15)
[2018-06-23] MEDS ORDERED: ACETAMINOPHEN 325 MG TABLET PO ONE (12:15)
[2018-06-23] MEDS ORDERED: METOCLOPRAMIDE HCL 10 MG/2 ML VIAL IV ONE (12:15)
--- NOTE | 2018-06-23 12:35 | NUR ---
Patient is resting comfortably in bed watching TV. Pt signed consent for IV contrasted CT.
[2018-06-23] MEDS ORDERED: SWABABLE VALVE TRANSFER SET EA MC ONE (12:38)
[2018-06-23] MEDS ORDERED: IOHEXOL 350 100 ML INFUS..BTL ONE (12:38)
[2018-06-23] MEDS ORDERED: IV NORMAL SALINE 250 ML IV ONE (12:38)
--- NOTE | 2018-06-23 14:37 | NUR ---
IV removed. Catheter intact and site benign. Pressure and 4x4 gauze applied to site. No bleeding noted.
[2018-06-23 14:39] LABS: *RHEUMATOID FACTOR SCREEN NEGATIVE (NEGATIVE)
--- NOTE | 2018-06-23 14:39 | NUR ---
Patient discharged to home in stable conditon. Written and verbal after care instructions given. Patient verbalizes understanding of instructions. Pt walked out of ER w/ steady gait.
[2018-06-23 14:40] VITALS: BP 114/70
[2018-06-24 22:09] LABS: *ANTI-SCLERODERMA-70 AB <0.2 AI (0.0-0.9); *SJOGREN'S ANTI-SS-A <0.2 AI (0.0-0.9); *SJOGREN'S ANTI-SS-B <0.2 AI (0.0-0.9); *SMITH ANTIBODIES <0.2 AI (0.0-0.9); ANTI-DNA(DS) AB, QN 2 IU/mL (0-9)
== END 2018-06-23 14:41 | disposition home or self-care (01) ==
LOC: ER 10:55
DX: G43.909 Migraine, unspecified, not intractable, without status migrainosus (principal); R42 Dizziness and giddiness; E78.5 Hyperlipidemia, unspecified; Z79.4 Long term (current) use of insulin; Z79.899 Other long term (current) drug therapy
CPT/HCPCS: 36415; 70496; 70498; 80048; 80076; 84484; 85025; 85651; 85730; 86038; 86430; 93005; 99284; Q9967; 70030-TC; A4663; A9150; J7050

== ENCOUNTER 2019-11-02 15:15 | Emergency (ER) | payer OTHER ==
[~2019-11-02] VITALS: Ht 188 cm; Wt 99.8 kg
--- NOTE | 2019-11-02 15:27 | NUR ---
DR Roque at the bedside for MSE.
[2019-11-02 15:34] VITALS: BP 146/79
--- NOTE | 2019-11-02 15:42 | NUR ---
Patient discharged to home in stable condition. Written and verbal after care instructions given. Patient verbalizes understanding of instructions. Stressed follow up or return to ER for worsening s/s.
== END 2019-11-02 15:43 | disposition home or self-care (01) ==
LOC: ER 15:15
DX: H66.92 Otitis media, unspecified, left ear (principal); Z82.3 Family history of stroke; E78.5 Hyperlipidemia, unspecified; Z87.19 Personal history of other diseases of the digestive system; R03.0 Elevated blood-pressure reading, without diagnosis of hypertension
CPT/HCPCS: A4663

== ENCOUNTER 2020-06-15 22:07 | Emergency (ER) | payer OTHER ==
[~2020-06-15] VITALS: Ht 185.4 cm; Wt 102.1 kg
[2020-06-15] MEDS ORDERED: DIPHENOXYLATE HCL/ATROP SULF TABLET PO ONE (22:30)
[2020-06-15] MEDS ORDERED: IV LACTATED RINGERS SOLUTION 1,000 ML IV ONE (22:30)
[2020-06-15] MEDS ORDERED: ONDANSETRON 4 MG/2 ML VIAL IV ONE (22:30)
[2020-06-15] MEDS ORDERED: DIPHENOXYLATE HCL/ATROP SULF TABLET ONE (22:40)
[2020-06-15] MEDS ORDERED: ONDANSETRON 4 MG/2 ML VIAL ONE (22:40)
[2020-06-15] MEDS ORDERED: CYCLOBENZAPRINE HCL 10 MG TABLET PO ONE (22:45)
[2020-06-15] MEDS ORDERED: CYCLOBENZAPRINE HCL 10 MG TABLET ONE (22:47)
[2020-06-15 22:48] LABS: BASOPHILS % (AUTO) 0.3 % (0.0-2.0); EOSINOPHILS # (AUTO) 0.1 K/uL (0.0-0.7); EOSINOPHILS % (AUTO) 1.1 % (0.0-7.0); HEMATOCRIT 47.4 % (36.7-47.1); HEMOGLOBIN 15.8 g/dL (12.5-16.3); LYMPHOCYTES # (AUTO) 1.3 K/uL (20.0-40.0); LYMPHOCYTES % (AUTO) 13.7 % (20.5-51.5); MEAN CORPUSCULAR HEMOGLOBIN 30.9 uug (23.8-33.4); MEAN CORPUSCULAR HGB CONC 33 g/dL (32.5-36.3); MEAN CORPUSCULAR VOLUME 92.5 fL (73.0-96.2); MONOCYTES # (AUTO) 0.9 K/uL (2.0-10.0); MONOCYTES % (AUTO) 9.5 % (0.0-11.0); NEUTROPHILS # (AUTO) 7.4 K/uL (1.8-8.9); NEUTROPHILS % (AUTO) 75.4 % (38.5-71.5); PLATELET COUNT (AUTO) 125 K/uL (152-348); RED BLOOD CELL COUNT(AUTO) 5.12 MIL/uL (4.06-5.63); WHITE BLOOD COUNT (AUTO) 9.8 K/uL (3.6-10.2)
[2020-06-15 22:50] LABS: CREATININE 1.1 mg/dL (0.6-1.3); POTASSIUM 3.7 mmol/L (3.5-5.1)
[2020-06-15 22:56] LABS: BILIRUBIN,DIRECT 0.2 mg/dL (0.0-0.2); BILIRUBIN,TOTAL 1.2 mg/dL (0.2-1.0); TOTAL PROTEIN, SERUM 8.1 g/dL (6.4-8.2)
[2020-06-15] MEDS ORDERED: ONDA4TAB5 PO (23:14)
[2020-06-15] MEDS ORDERED: ONDANSETRON ODT 4 MG TAB.RAPDIS SL ONE (23:15)
--- NOTE | 2020-06-15 23:16 | NUR ---
IV removed. Catheter intact and site benign. Pressure and 4x4 gauze applied to site. No bleeding noted.
[2020-06-15] MEDS ORDERED: CYCL10TA9 PO (23:19)
[2020-06-15] MEDS ORDERED: ONDANSETRON ODT 4 MG TAB.RAPDIS ONE (23:22)
[2020-06-15 23:24] VITALS: BP 151/97
== END 2020-06-15 23:27 | disposition home or self-care (01) ==
LOC: ER 22:09
DX: R19.7 Diarrhea, unspecified (principal); R11.0 Nausea; R25.2 Cramp and spasm; I10 Essential (primary) hypertension; E78.5 Hyperlipidemia, unspecified; Z82.3 Family history of stroke; Z86.16 Personal history of COVID-19
CPT/HCPCS: 36415; 71045; 80048; 80076; 83690; 85025; 93005; 96361; 96374; 99285; J2405; A4663; Q0162

== ENCOUNTER 2021-03-14 21:40 | Emergency (ER) | payer SELFPAY ==
[~2021-03-14 21:40] MED LIST changes: +CYCL10TA9 PO; +ONDA4TAB5 PO
--- NOTE | 2021-03-14 22:40 | NUR ---
PATIENT WAS CALLED TO BE TRIAGED BUT WAS NOT PRESENT IN THE WAITING ROOM OR OUTSIDE OF ER.
--- NOTE | 2021-03-14 22:50 | NUR ---
PATIENT WAS CALLED TO BE TRIAGED BUT WAS NOT PRESENT IN THE WAITING ROOM OR OUTSIDE OF ER.
--- NOTE | 2021-03-14 23:00 | NUR ---
PATIENT WAS NOT TRIAGED OR SEEN BY ERMD.
== END 2021-03-14 23:00 | disposition left against medical advice (07) ==
LOC: ER 21:41
DX: Z53.21 Procedure and treatment not carried out due to patient leaving prior to being seen by health care provider (principal)

== ENCOUNTER 2021-07-28 12:59 | Emergency (ER) | payer OTHER ==
[~2021-07-28] VITALS: Ht 188 cm; Wt 99.8 kg
[2021-07-28] MEDS ORDERED: TDAP DIPH,PERTUSS,TET VAC/PF 0.5 ML DISP.SYRIN IM ONE ×2 (13:48→14:00)
[2021-07-28] MEDS ORDERED: IBUPROFEN 600 MG TABLET ONE (13:53)
--- NOTE | 2021-07-28 13:55 | NUR ---
MD at bedside, medical screening exam in progress.
[2021-07-28] MEDS ORDERED: NEOMY/BACITRA/POLYMYXIN B OINT UD PACKET TP ONE ×2 (14:00)
--- NOTE | 2021-07-28 14:05 | NUR ---
Triple atb applied on right 5th finger,secured with dressing.
[2021-07-28 14:28] VITALS: BP 131/70
[2021-07-28] MEDS ORDERED: IBUPROFEN 600 MG TABLET PO ONE (14:30)
== END 2021-07-28 14:29 | disposition home or self-care (01) ==
LOC: ER 12:59
DX: S61.216A Laceration without foreign body of right little finger without damage to nail, initial encounter (principal); W22.09XA Striking against other stationary object, initial encounter; Y93.73 Activity, racquet and hand sports; Y92.312 Tennis court as the place of occurrence of the external cause; E78.5 Hyperlipidemia, unspecified; I10 Essential (primary) hypertension; Z82.3 Family history of stroke
CPT/HCPCS: 90715; A4663

== ENCOUNTER 2021-10-15 21:13 | Emergency (ER) | payer OTHER ==
--- NOTE | 2021-10-15 22:00 | NUR ---
PATIENT WAS CALLED TO BE TRANSFERED BUT WAS NOT PRESENT IN THE WAITING ROOM OR OUTSIDE OF ER.
--- NOTE | 2021-10-15 22:30 | NUR ---
PATIENT WAS CALLED TO BE TRIAGED BUT WAS NOT PRESENT IN THE WAITING. PATIENT WAS NOT TRIAGED OR SEEN BY ERMD.
== END 2021-10-15 22:30 | disposition left against medical advice (07) ==
LOC: ER 21:13
DX: Z53.21 Procedure and treatment not carried out due to patient leaving prior to being seen by health care provider (principal)

== ENCOUNTER 2021-10-22 14:19 | Emergency (ER) | payer OTHER ==
[~2021-10-22] VITALS: Ht 182.9 cm; Wt 98.0 kg
--- NOTE | 2021-10-22 15:01 | NUR ---
at bedside to examine pt.
[2021-10-22 15:12] LABS: HEMATOCRIT 49.4 % (36.7-47.1); MEAN CORPUSCULAR VOLUME 91.4 fL (73.0-96.2); PLATELET COUNT (AUTO) 127 K/uL (152-348)
[2021-10-22 15:28] LABS: CREATININE 0.9 mg/dL (0.6-1.3); POTASSIUM 4.3 mmol/L (3.5-5.1)
[2021-10-22 15:32] LABS: BILIRUBIN,DIRECT 0.3 mg/dL (0.0-0.2); BILIRUBIN,TOTAL 1.6 mg/dL (0.2-1.0); TOTAL PROTEIN, SERUM 8.4 g/dL (6.4-8.2)
[2021-10-22] MEDS ORDERED: ONDANSETRON 4 MG/2 ML VIAL IV ONE (16:00)
[2021-10-22] MEDS ORDERED: MORPHINE SULFATE 4 MG/1 ML DISP.SYRIN IV ONE (16:00)
[2021-10-22] MEDS ORDERED: ONDANSETRON 4 MG/2 ML VIAL ONE (16:14)
[2021-10-22] MEDS ORDERED: MORPHINE SULFATE 4 MG/1 ML DISP.SYRIN ONE (16:15)
[2021-10-22] MEDS ORDERED: IOHEXOL 300MG/ML 50 ML VIAL ONE (17:03)
[2021-10-22] MEDS ORDERED: SWABABLE VALVE TRANSFER SET EA MC ONE (17:03)
[2021-10-22] MEDS ORDERED: IV NORMAL SALINE 250 ML IV ONE (17:03)
--- NOTE | 2021-10-22 18:09 | NUR ---
at bedside discussing ct results with pt.
--- NOTE | 2021-10-22 18:11 | NUR ---
DCD instructions given to pt. who verbalized understanding. Pt. left room [id number]. vitals stable no c/of pain steady gait IV line dcd.
[2021-10-22] MEDS ORDERED: ONDA4TAB5 PO (18:26)
--- NOTE | 2021-10-22 18:26 | NUR ---
informed of pt's reuquest to have prescription for nausea.
== END 2021-10-22 18:27 | disposition home or self-care (01) ==
LOC: ER 14:21
DX: R10.30 Lower abdominal pain, unspecified (principal); Z87.19 Personal history of other diseases of the digestive system; Z82.3 Family history of stroke; Z90.49 Acquired absence of other specified parts of digestive tract
CPT/HCPCS: 99285; 74177; 96375; 80076; 80048; 83690; 85025; 36415; 96374; Q9967; J2405; J2270; A4663

== ENCOUNTER 2022-03-13 13:10 | Emergency (ER) | payer OTHER ==
[~2022-03-13] VITALS: Ht 188 cm; Wt 99.8 kg
[2022-03-13 14:12] LABS: CARBON DIOXIDE 28 mmol/L (21-32); CHLORIDE 104 mmol/L (98-107); CREATININE 0.9 mg/dL (0.6-1.3); GLUCOSE 97 mg/dL (74-106); POTASSIUM 4.3 mmol/L (3.5-5.1); UREA NITROGEN, BLOOD 10 mg/dL (7-18)
[2022-03-13 14:16] LABS: HEMATOCRIT 44.8 % (36.7-47.1); MEAN CORPUSCULAR HEMOGLOBIN 30.9 uug (23.8-33.4); MEAN CORPUSCULAR VOLUME 92.5 fL (73.0-96.2); PLATELET COUNT (AUTO) 133 K/uL (152-348)
[2022-03-13 14:20] LABS: ALANINE AMINOTRANSFERASE 53 U/L (16-63); ALKALINE PHOSPHATASE 109 U/L (50-136); ASPARTATE AMINOTRANSFERASE 20 U/L (15-37); BILIRUBIN,DIRECT 0.3 mg/dL (0.0-0.2); BILIRUBIN,TOTAL 1.3 mg/dL (0.2-1.0); TOTAL PROTEIN, SERUM 7.6 g/dL (6.4-8.2)
[2022-03-13] MEDS ORDERED: IPRATROPIUM BROMIDE 0.5 MG/2.5 ML NEBU ONE (17:14)
[2022-03-13] MEDS ORDERED: ALBUTEROL SULFATE 2.5 MG/3 ML NEBU ONE (17:14)
[2022-03-13] MEDS ORDERED: ALBUTEROL SULFATE 2.5 MG/3 ML NEBU NEB ONE (17:15)
[2022-03-13] MEDS ORDERED: IPRATROPIUM BROMIDE 0.5 MG/2.5 ML NEBU NEB ONE (17:15)
[2022-03-13] MEDS ORDERED: ALBU8.5H8 INH (17:56)
[2022-03-13 18:50] VITALS: BP 149/91
== END 2022-03-13 18:05 | disposition home or self-care (01) ==
LOC: ER 13:10
DX: R07.81 Pleurodynia (principal); Z86.16 Personal history of COVID-19; E78.5 Hyperlipidemia, unspecified; Z82.3 Family history of stroke; Z90.49 Acquired absence of other specified parts of digestive tract
CPT/HCPCS: 36415; 71045; 84484; 85025; 93005; A4663; J3590

== ENCOUNTER 2022-12-17 00:27 | Emergency (ER) | payer OTHER ==
[~2022-12-17] VITALS: Ht 188 cm; Wt 97.5 kg
[~2022-12-17 00:27] MED LIST changes: +ALBU8.5H8 INH
[2022-12-17] MEDS ORDERED: PSEU120T99 PO (01:12)
[2022-12-17] MEDS ORDERED: FLUT16SP16 BNOSTRILS (01:12)
[2022-12-17 01:31] VITALS: BP 115/74; TEMP 98.9; O2SAT 97
== END 2022-12-17 01:25 | disposition home or self-care (01) ==
LOC: ER 00:31
DX: J31.0 Chronic rhinitis (principal); J06.9 Acute upper respiratory infection, unspecified; B97.89 Other viral agents as the cause of diseases classified elsewhere; E78.5 Hyperlipidemia, unspecified; E11.9 Type 2 diabetes mellitus without complications; Z79.899 Other long term (current) drug therapy
CPT/HCPCS: A4606; A4663

== ENCOUNTER 2023-04-27 15:28 | Inpatient (IN) | payer OTHER ==
[~2023-04-27] VITALS: Ht 190.5 cm; Wt 97.5 kg
[~2023-04-27 15:28] MED LIST changes: +FLUT16SP16 BNOSTRILS
[2023-04-27] MEDS ORDERED: ATOR40TA PO (16:17)
[2023-04-27] MEDS ORDERED: CHOL500062 PO (16:17)
[2023-04-27] MEDS ORDERED: ATEN25TA PO (16:17)
[2023-04-27] MEDS ORDERED: LISI40TA13 PO (16:17)
[2023-04-27 16:19] LABS: BASOPHILS % (AUTO) 0.5 % (0.0-2.0); EOSINOPHILS # (AUTO) 0.1 K/uL (0.0-0.7); EOSINOPHILS % (AUTO) 1.6 % (0.0-7.0); HEMOGLOBIN 14.8 g/dL (12.5-16.3); LYMPHOCYTES # (AUTO) 2.1 K/uL (0.8-4.8); LYMPHOCYTES % (AUTO) 35.6 % (20.5-51.5); MEAN CORPUSCULAR HEMOGLOBIN 30.8 uug (23.8-33.4); MEAN CORPUSCULAR HGB CONC 34 g/dL (32.5-36.3); MEAN CORPUSCULAR VOLUME 91.9 fL (73.0-96.2); MONOCYTES # (AUTO) 0.5 K/uL (0.1-1.30); MONOCYTES % (AUTO) 8.8 % (0.0-11.0); NEUTROPHILS # (AUTO) 3.1 K/uL (1.8-8.9); NEUTROPHILS % (AUTO) 53.5 % (38.5-71.5); PLATELET COUNT (AUTO) 117 K/uL (152-348); RED BLOOD CELL COUNT(AUTO) 4.79 MIL/uL (4.06-5.63); RED CELL DISTRIBUTION WIDTH 14.6 % (12.1-16.2); WHITE BLOOD COUNT (AUTO) 5.9 K/uL (3.6-10.2)
[2023-04-27 16:22] LABS: DIFFERENTIAL COMMENT 1
[2023-04-27] MEDS ORDERED: ASPIRIN 81 MG TAB.CHEW ONE (16:33)
[2023-04-27] MEDS: ASPIRIN 81 MG TAB.CHEW PO ONE (16:34)
[2023-04-27 16:37] LABS: CALCIUM 8.4 mg/dL (8.5-10.1); CARBON DIOXIDE 25 mmol/L (21-32); CHLORIDE 104 mmol/L (98-107); CREATININE 0.8 mg/dL (0.6-1.3); GLUCOSE 99 mg/dL (74-106); POTASSIUM 4.2 mmol/L (3.5-5.1); SODIUM SERUM 139 mmol/L (136-145); UREA NITROGEN, BLOOD 14 mg/dL (7-18)
[2023-04-27 16:50] LABS: ALANINE AMINOTRANSFERASE 36 U/L (16-63); ALBUMIN 4.2 g/dL (3.4-5.0); ALKALINE PHOSPHATASE 93 U/L (50-136); ASPARTATE AMINOTRANSFERASE 13 U/L (15-37); BILIRUBIN,DIRECT 0.3 mg/dL (0.0-0.2); BILIRUBIN,TOTAL 1.7 mg/dL (0.2-1.0); NT-PRO BNP 25 pg/mL (0-125); TOTAL PROTEIN, SERUM 7.6 g/dL (6.4-8.2)
[2023-04-27 18:06] VITALS: TEMP 98.2
[2023-04-27] MEDS ORDERED: OMEG-83 PO (18:57)
[2023-04-27] MEDS ORDERED: ACETAMINOPHEN 325 MG TABLET PO PRN (20:15)
[2023-04-27] MEDS ORDERED: hydrALAZINE HCL 25 MG TABLET PO PRN (20:15)
[2023-04-27] MEDS ORDERED: ONDANSETRON 4 MG/2 ML VIAL IV PRN (20:15)
[2023-04-27] MEDS ORDERED: MORPHINE SULFATE 2 MG/1 ML DISP.SYRIN IV PRN (20:15)
[2023-04-27] MEDS: ATORVASTATIN 40 MG TABLET PO SCH (21:38)
[2023-04-27] MEDS: ZOLPIDEM 5 MG TABLET PO PRN (22:17)
[2023-04-27 22:33] VITALS: BP 119/74; TEMP 98.2
[2023-04-28 00:11] VITALS: BP 131/76; TEMP 98.2; O2SAT 99
[2023-04-28] MEDS: PANTOPRAZOLE SODIUM 40 MG TABLET.DR PO SCH (06:07)
[2023-04-28 06:12] VITALS: BP 123/72; TEMP 98.2
[2023-04-28 06:14] VITALS: BP 123/72; TEMP 98.2; O2SAT 99
[2023-04-28] MEDS ORDERED: MECLIZINE HCL 25 MG TABLET PO PRN (06:30)
[2023-04-28 06:36] VITALS: BP_SYST 128; BP_SYST 135; BP_SYST 136; BP_DIAS 88; BP_DIAS 90; BP_DIAS 91
[2023-04-28 07:53] LABS: BASOPHILS % (AUTO) 0.4 % (0.0-2.0); EOSINOPHILS # (AUTO) 0.2 K/uL (0.0-0.7); EOSINOPHILS % (AUTO) 2.7 % (0.0-7.0); HEMATOCRIT 42.7 % (36.7-47.1); HEMOGLOBIN 14.6 g/dL (12.5-16.3); LYMPHOCYTES # (AUTO) 2.2 K/uL (0.8-4.8); LYMPHOCYTES % (AUTO) 37.1 % (20.5-51.5); MEAN CORPUSCULAR HEMOGLOBIN 31.2 uug (23.8-33.4); MEAN CORPUSCULAR HGB CONC 34 g/dL (32.5-36.3); MEAN CORPUSCULAR VOLUME 91.5 fL (73.0-96.2); MONOCYTES # (AUTO) 0.6 K/uL (0.1-1.30); MONOCYTES % (AUTO) 10.8 % (0.0-11.0); PLATELET COUNT (AUTO) 106 K/uL (152-348); RED BLOOD CELL COUNT(AUTO) 4.66 MIL/uL (4.06-5.63); RED CELL DISTRIBUTION WIDTH 14.2 % (12.1-16.2)
[2023-04-28 07:58] LABS: DIFFERENTIAL COMMENT 1
[2023-04-28 08:30] LABS: THYROID STIMULATING HORMONE 2.525 mIU/mL (0.358-3.740)
[2023-04-28 08:32] LABS: ALBUMIN 3.8 g/dL (3.4-5.0); BILIRUBIN,TOTAL 1.3 mg/dL (0.2-1.0); CALCIUM 8.5 mg/dL (8.5-10.1); CREATININE 0.8 mg/dL (0.6-1.3); PHOSPHOROUS 4.4 mg/dL (2.5-4.9); TOTAL PROTEIN, SERUM 7.1 g/dL (6.4-8.2)
[2023-04-28] MEDS: LISINOPRIL 20 MG TABLET PO SCH (08:48)
[2023-04-28] MEDS: ATENOLOL 25 MG TABLET PO SCH (08:48)
[2023-04-28] MEDS: ASPIRIN 81 MG TAB.CHEW PO SCH (08:49)
[2023-04-28] MEDS: CHOLECALCIFEROL 1,000 UNIT TABLET PO SCH (08:50)
[2023-04-28] MEDS: OMEGA-3 FATTY ACIDS/FISH OIL CAPSULE PO SCH (08:50)
[2023-04-28 09:31] VITALS: BP 128/94; TEMP 98.2; O2SAT 99
[2023-04-28 17:08] VITALS: BP 136/62; TEMP 98.2; O2SAT 99
[2023-04-28] MEDS ORDERED: MECL-159 PO (21:27)
== END 2023-04-28 19:20 | disposition home or self-care (01) | DRG 198 ==
LOC: ER 15:31 → MEDSURG3 17:41 → TELE3 18:10
PROVIDERS: ADMIT Internal Medicine; ATTEND Nurse Practitioner Acute Care
DX: I25.10 Atherosclerotic heart disease of native coronary artery without angina pectoris (principal); D68.59 Other primary thrombophilia; E66.9 Obesity, unspecified; E11.9 Type 2 diabetes mellitus without complications; E78.5 Hyperlipidemia, unspecified; I10 Essential (primary) hypertension; G47.30 Sleep apnea, unspecified; R42 Dizziness and giddiness; Z79.899 Other long term (current) drug therapy; Z82.3 Family history of stroke; Z90.49 Acquired absence of other specified parts of digestive tract; R53.83 Other fatigue
CPT/HCPCS: 36415; 70450; 71045; 83690; 83735; 84100; 84443; 84484; 85025; 85730; 93005; 93307; A4606; A4663; G0378; J7040

== ENCOUNTER 2024-03-28 09:40 | Emergency (ER) | payer OTHER ==
[~2024-03-28] VITALS: Ht 185.4 cm; Wt 99.8 kg
[~2024-03-28 09:40] MED LIST changes: -ALBU8.5H8 INH; +ATEN25TA PO; +ATOR40TA PO; +CHOL500062 PO; -CIPR250T4 PO; -CYCL10TA9 PO; +DICY10CA13 PO; -FLUT16SP16 BNOSTRILS; -HYDR-3326 PO; -LACT1CAP59 PO; +LISI40TA13 PO; -MAG30ORA PO; +MECL-159 PO; -METR-147 PO; +OMEG-83 PO
[2024-03-28] MEDS ORDERED: PSEU-249 PO (10:29)
[2024-03-28] MEDS ORDERED: FLUT16SP16 BNOSTRILS (10:29)
[2024-03-28] MEDS ORDERED: AMOX-430 PO (10:29)
[2024-03-28] MEDS ORDERED: OXYM15MI4 NS (10:29)
[2024-03-28 10:46] VITALS: BP 144/92; O2SAT 96
== END 2024-03-28 10:47 | disposition home or self-care (01) ==
LOC: ER 09:40
DX: J32.9 Chronic sinusitis, unspecified (principal); E11.9 Type 2 diabetes mellitus without complications; E78.5 Hyperlipidemia, unspecified; G47.33 Obstructive sleep apnea (adult) (pediatric); I11.9 Hypertensive heart disease without heart failure; Z79.899 Other long term (current) drug therapy; Z60.2 Problems related to living alone; Z88.7 Allergy status to serum and vaccine
CPT/HCPCS: 93005; A4606; A4663

== ENCOUNTER 2024-08-01 20:24 | Emergency (ER) | payer OTHER ==
[~2024-08-01] VITALS: Ht 185.4 cm; Wt 90.7 kg
[~2024-08-01 20:24] MED LIST changes: +AMOX-430 PO; +FLUT16SP16 BNOSTRILS; +OXYM15MI4 NS; +PSEU-249 PO
[2024-08-01 21:03] LABS: BASOPHILS % (AUTO) 0.3 % (0.0-2.0); EOSINOPHILS % (AUTO) 0.3 % (0.0-7.0); HEMATOCRIT 46.5 % (36.7-47.1); HEMOGLOBIN 15.7 g/dL (12.5-16.3); LYMPHOCYTES # (AUTO) 0.9 K/uL (0.8-4.8); LYMPHOCYTES % (AUTO) 12.4 % (20.5-51.5); MEAN CORPUSCULAR HEMOGLOBIN 31.6 uug (23.8-33.4); MEAN CORPUSCULAR HGB CONC 34 g/dL (32.5-36.3); MEAN CORPUSCULAR VOLUME 93.7 fL (73.0-96.2); MONOCYTES # (AUTO) 0.6 K/uL (0.1-1.30); NEUTROPHILS # (AUTO) 5.5 K/uL (1.8-8.9); PLATELET COUNT (AUTO) 102 K/uL (152-348); RED BLOOD CELL COUNT(AUTO) 4.97 MIL/uL (4.06-5.63); RED CELL DISTRIBUTION WIDTH 13.9 % (12.1-16.2); WHITE BLOOD COUNT (AUTO) 7.1 K/uL (3.6-10.2)
[2024-08-01 21:05] LABS: DIFFERENTIAL COMMENT 1
[2024-08-01 21:10] LABS: CREATININE 0.8 mg/dL (0.6-1.3); POTASSIUM 3.8 mmol/L (3.5-5.1)
[2024-08-01] MEDS: IV LACTATED RINGERS SOLUTION 1,000 ML IV ONE (21:11)
[2024-08-01] MEDS: LOPERAMIDE HCL 2 MG CAPSULE PO ONE (21:11)
[2024-08-01 21:15] LABS: BILIRUBIN,TOTAL 1.7 mg/dL (0.2-1.0)
[2024-08-01 21:16] LABS: ALBUMIN 4.1 g/dL (3.4-5.0); BILIRUBIN,DIRECT 0.3 mg/dL (0.0-0.2); TOTAL PROTEIN, SERUM 7.4 g/dL (6.4-8.2)
[2024-08-01] MEDS ORDERED: LOPERAMIDE HCL 2 MG CAPSULE ONE (21:50)
[2024-08-01 22:10] VITALS: BP 122/86; O2SAT 99
== END 2024-08-01 22:11 | disposition home or self-care (01) ==
LOC: ER 20:41
DX: R19.7 Diarrhea, unspecified (principal); Z79.899 Other long term (current) drug therapy; Z98.890 Other specified postprocedural states; Z88.7 Allergy status to serum and vaccine
CPT/HCPCS: 99283; 96360; 80076; 80048; 83690; 85025; 36415; J7120; A4606; A4663

== ENCOUNTER 2024-09-03 14:41 | Emergency (ER) | payer OTHER ==
[~2024-09-03] VITALS: Ht 188 cm; Wt 90.7 kg
[2024-09-03 15:29] VITALS: BP 131/83; O2SAT 99
== END 2024-09-03 15:30 | disposition home or self-care (01) ==
LOC: ER 14:41
DX: S86.811A Strain of other muscle(s) and tendon(s) at lower leg level, right leg, initial encounter (principal); S66.811A Strain of other specified muscles, fascia and tendons at wrist and hand level, right hand, initial encounter; Z79.899 Other long term (current) drug therapy; Z88.7 Allergy status to serum and vaccine; Z87.09 Personal history of other diseases of the respiratory system; W01.0XXA Fall on same level from slipping, tripping and stumbling without subsequent striking against object, initial encounter; Y93.73 Activity, racquet and hand sports; Y92.89 Other specified places as the place of occurrence of the external cause; Y99.8 Other external cause status
CPT/HCPCS: A4606; A4663